=== PATIENT | female | born 1995 | race Two or more races ===

== ENCOUNTER → 2020-03-07 15:01 | Outpatient (BNVA) | payer SELFPAY | DX: Z13.89 Encounter for screening for other disorder (principal) | CPT/HCPCS: 81025 ==

== ENCOUNTER 2020-03-09 12:04 | Outpatient (REF) | payer OTHER, SELFPAY ==
--- NOTE | 2020-03-09 12:34 | US_ITS ---
EXAMINATION: OBSTETRICAL ULTRASOUND, FIRST TRIMESTER HISTORY: 24-year-old with secondary amenorrhea LMP: Unknown COMPARISON: None TECHNIQUE: Real time transabdominal imaging with color and M-mode Doppler. Transvaginal ultrasound was performed using an endovaginal probe for better resolution. FINDINGS: A single, live IUP CRL of 14.4 mm c/w 7.6wks is noted. Heart Rate: 169 beats per minute. Normal yolk sac seen Left ovary is within normal limits. The right ovary was not visualized. GESTATIONAL AGE: 1. GA from LMP: N/A wks 2. GA from AUA: 7.6 wks ESTIMATED DATE OF DELIVERY: 1. BRUNA from LMP: N/A 2. BRUNA from AUA: 10/20/2020 IMPRESSION: 1. A single live IUP 2. CRL corresponds to 7 weeks 6 days, best BRUNA 10/20/2020. 3. Normal-appearing yolk sac Follow up at approximately 12 weeks of gestation for NT evaluation (not scheduled) Thank you very much for this referral.
== END 2020-03-09 12:05 | disposition home or self-care (01) ==
LOC: HO.US 12:04
PROVIDERS: Visit Provider Advanced Practice Midwife
DX: Z34.90 Encounter for supervision of normal pregnancy, unspecified, unspecified trimester (principal)
CPT/HCPCS: 76801; 76817

== ENCOUNTER → 2020-03-28 10:19 | Outpatient (BNVA) | payer OTHER, SELFPAY | PROVIDERS: Visit Provider Advanced Practice Midwife | DX: Z76.89 Persons encountering health services in other specified circumstances (principal) ==

== ENCOUNTER 2020-04-09 15:10 | Outpatient (REF) | payer OTHER, SELFPAY ==
[2020-04-10 02:15] LABS: CT PCR NOT DETECTED (Not Detect.); NG PCR NOT DETECTED (Not Detect.)
== END 2020-04-09 15:11 | disposition home or self-care (01) ==
LOC: HO.LAB 15:10
PROVIDERS: Visit Provider Advanced Practice Midwife
DX: O21.9 Vomiting of pregnancy, unspecified (principal); Z34.90 Encounter for supervision of normal pregnancy, unspecified, unspecified trimester; Z13.31 Encounter for screening for depression
CPT/HCPCS: 87491; 87591; 88142

== ENCOUNTER → 2020-05-07 11:25 | Outpatient (BNVA) | payer OTHER, SELFPAY | PROVIDERS: Visit Provider Advanced Practice Midwife | DX: Z76.89 Persons encountering health services in other specified circumstances (principal) ==

== ENCOUNTER 2020-05-18 10:53 | Outpatient (REF) | payer OTHER, SELFPAY ==
--- NOTE | 2020-05-18 10:57 | US_ITS ---
EXAMINATION: US OBSTETRICAL CLINICAL INFORMATION: 25-year-old at 17.6 weeks of gestation Suspected anomaly COMPARISON: 03/09/2020 TECHNIQUE: Real-time transabdominal ultrasound was performed using C1-5 megahertz transducer. FINDINGS: A single, active, fetus is seen in vertex presentation. The placenta is posterior without previa, and the amniotic fluid volume is wnl. MEASUREMENTS: 1. Biparietal Diameter: 4.0 cm; 18.1 wks 2. Occipital Frontal Diameter: 5.2 cm 3. Head Circumference: 14.7 cm; 18.0 wks 4. Abdominal Circumference: 12.8 cm; 18.3 wks 5. Femur Length: 2.7 cm; 18.3 wks 6. Humerus Length: 2.7 cm; 18.4 wks 7. Tibia Length: 2.7 cm; 19.5 wks 8. Ulna Length: 2.4 cm; 18.5 wks 9. Lateral ventricle: 0.62 cm 10. Cerebellum: 1.74 cm; 18.2 wks 11. Cisterna Magna: 0.43 cm 12. Nuchal Fold: 2.6 mm 13. Heart Rate: 158 beats per minute Rt ovary: normal Lt ovary: normal Cervical length 4.5 cm on T/A. GESTATIONAL AGE: 1. Established GA: 17.6 wks 2. GA from [facility]: 18.2 wks ESTIMATED DATE OF DELIVERY: 1. Established BRUNA: 10/20/2020 2. BRUNA from [facility]: 10/17/2020 ANATOMY: Limited the anatomic survey due to position and early gestational age. The views of four-chamber, RVOT, 3 vessel trachea and bilateral hands were suboptimal. The visualized anatomy includes but not limited to: 1. Cranium: Normal 2. Intracranial anatomy: cavum septum pellucidi, lateral ventricles, choroid plexus, cerebellum, posterior fossa, third and fourth ventricles. 3. face: orbits, lip/palate, profile, nasal bone 4. Heart: aortic and ductal arches, situs.. 5. Diaphragm: Normal 6. Abdominal wall: Normal 7. Cord Insertion: Normal 8. Spine: Cervical, thoracic, lumbar, sacral. 9. Stomach: Normal size and shape 10. Right Kidney: Normal 11. Left Kidney: Normal 12. 3 vessel cord: Normal 13. Upper extremity: Suboptimal views of the hands 14. Lower extremity: Tibia, fibula, bilateral feet. 15. Bladder: Normal 16. Genitalia: Male, patient aware US/US OB /maternal detail IMPRESSION: 1. Single, living, intrauterine with appropriate biometry. 2. Limited the anatomic survey due to position and early gestational age. The views of four-chamber, RVOT, 3 vessel trachea and bilateral hands were suboptimal. No abnormalities were seen in visualized anatomy. DISCUSSION: I reviewed today's ultrasound findings. We discussed the limitations of ultrasound in diagnosing aneuploidy and other congenital abnormalities. I reviewed the differences between screening test and diagnostic test. Amniocentesis was discussed and declined. She was informed that the baseline incidence of congenital abnormalities is approximately 3-5%. Not all these conditions are diagnosable in utero. RECOMMENDATIONS: 1. A follow-up has been scheduled in 3 weeks. Thank you for allowing me to participate in her care. Visiting time 25 minutes. Majority of this visit was spent reviewing and discussing her care.
[2020-05-18 14:15] LABS: MANUAL DIFF FLAG NO
[2020-05-18 14:24] LABS: Basophils Absolute Auto 0.1 X10*3/uL (0.0-0.2); Basophils Percent Auto 0.3 % (0-2); Eosinophils Absolute Auto 0.1 X10*3/uL (0.0-0.4); Eosinophils Percent Auto 0.9 % (0-4); Hematocrit 32.5 % (37-47); Hemoglobin 10.6 g/dl (12.0-16.0); Imm Gran Abs Auto 0.12 X10*3/uL (0.00-0.03); Imm Gran Pct Auto 0.7 % (0.0-0.4); Lymphocytes Absolute Auto 1.7 X10*3/uL (1.2-4.9); Lymphocytes Percent Auto 10.4 % (20-40); Mean Corpuscular HGB Conc 32.6 g/dl (31.0-35.0); Mean Corpuscular Hemoglobin 27.1 pg (27.0-33.0); Mean Corpuscular Volume 83.1 fL (80-98); Mean Platelet Volume 11.6 fL (9.4-12.3); Monocytes Absolute Auto 0.5 X10*3/uL (0.1-1.2); Monocytes Percent Auto 3.2 % (2-11); Neutrophils Absolute Auto 13.5 X10*3/uL (2.0-8.3); Neutrophils Percent Auto 84.5 % (45-73); Platelet Count 337 X10*3/uL (160-400); Red Blood Count 3.91 X10*6/uL (4.20-5.50); Red Cell Distribution Width 14.2 % (11.0-16.0)
[2020-05-18 15:03] LABS: Amphetamine Screen Urine Not Detected (Not Detect); Barbiturates, Urine Not Detected (Not Detect); Benzodiazepines Screen Urine Not Detected (Not Detect); Cannabinoid Screen Urine Not Detected (Not Detect); Cocaine Screen Urine Not Detected (Not Detect); Opiate Screen Urine Not Detected (Not Detect); Phencyclidine Screen Urine Not Detected (Not Detect)
[2020-05-18 15:03] LABS: Syphilis Screen Nonreactive (Nonreactive)
[2020-05-19 09:17] LABS: Rubella IgG Antibody 1.25 Index
[2020-05-21 07:54] LABS: HBsAGNum1 0.19 S/CO (0.00-0.99); Hepatitis B Surface Antigen Negative (Negative); ~HepC Num1 0.05 S/CO (0.00-0.79); ~Hepatitis C Antibody Nonreactive (Nonreactive)
[2020-05-21 08:27] LABS: HIV AB/AG Nonreactive (Nonreactive); HIV Num 1 0.12 S/CO (0.00-0.99)
== END 2020-05-18 10:54 | disposition home or self-care (01) ==
LOC: HO.US 10:53
PROVIDERS: Visit Provider Advanced Practice Midwife
DX: O35.9XX0 Maternal care for (suspected) fetal abnormality and damage, unspecified, not applicable or unspecified (principal); Z3A.18 18 weeks gestation of pregnancy
CPT/HCPCS: 36415; 76811; 80307; 85025; 86762; 86780; 86787; 86803; 86850; 86900; 86901; 87086; 87340; 87389

== ENCOUNTER → 2020-06-14 15:06 | Outpatient (BNVA) | payer OTHER, SELFPAY | PROVIDERS: PCP Internal Medicine; Visit Provider Advanced Practice Midwife | DX: O21.9 Vomiting of pregnancy, unspecified (principal); Z13.31 Encounter for screening for depression | CPT/HCPCS: 81003; 99212 ==

== ENCOUNTER 2020-06-22 09:50 | Outpatient (REF) | payer OTHER, SELFPAY ==
--- NOTE | 2020-06-22 09:55 | US_ITS ---
EXAMINATION: OBSTETRICAL ULTRASOUND, Follow up HISTORY: 25-year-old at 23.1 weeks of gestation Follow-up anatomy COMPARISON: 05/18/2020 TECHNIQUE: Real time transabdominal imaging with color and M-mode Doppler. PRESENTATION: Breech PLACENTA LOCATION: Posterior AMNIOTIC FLUID: Normal MEASUREMENTS: 1. Biparietal Diameter: 5.4 cm; 22.4 wks 2. Head Circumference: 20.7 cm; 22.6 wks 3. Abdominal Circumference: 18.7 cm; 23.4 wks 4. Femur Length: 4.10 cm; 23.3 wks 5. Heart Rate: 142 beats per minute WEIGHT: Estimated weight is 579 grams (1 lbs 4 oz) -- 64 %. Normal views of lateral cerebral ventricle, profile, nose/lips, 4ch view, LVOT, RVOT, bilateral hands. GESTATIONAL AGE: 1. Established GA: 23.1 wks 2. GA from [facility]: 22.6 wks ESTIMATED DATE OF DELIVERY: 1. Established BRUNA: 10/20/2020 2. BRUNA from [facility]: 10/18/2020 US/US OB follow up IMPRESSION: 1. A single fetus with appropriate interval growth. 2. Previously limited views of the anatomy were seen as listed above. No abnormalities were noted in visualized anatomy. 3. This completes the survey. I reviewed the limitations of ultrasound in diagnosing aneuploidy and other congenital abnormalities. Amniocentesis was again reviewed and she declined. She was informed that the baseline instance of congenital abnormalities and defects in the general population is approximately 3-5%. Not all these conditions are diagnosable in utero. RECOMMENDATIONS: 1. f/u PRN Thank you very much for this referral.
== END 2020-06-22 09:51 | disposition home or self-care (01) ==
LOC: HO.US 09:50
PROVIDERS: Visit Provider Advanced Practice Midwife
DX: Z36.2 Encounter for other antenatal screening follow-up (principal); Z3A.23 23 weeks gestation of pregnancy
CPT/HCPCS: 76816

== ENCOUNTER → 2020-07-12 12:50 | Outpatient (BNVA) | payer OTHER, SELFPAY | PROVIDERS: Visit Provider Advanced Practice Midwife | DX: Z76.89 Persons encountering health services in other specified circumstances (principal) | CPT/HCPCS: 99212 ==

== ENCOUNTER 2020-08-07 11:07 | Outpatient (REF) | payer OTHER, SELFPAY ==
[2020-08-07 14:07] LABS: Hematocrit 28.6 % (37-47); Hemoglobin 9.2 g/dl (12.0-16.0); Mean Corpuscular HGB Conc 32.2 g/dl (31.0-35.0); Mean Corpuscular Hemoglobin 26.4 pg (27.0-33.0); Mean Corpuscular Volume 82.2 fL (80-98); Mean Platelet Volume 11.4 fL (9.4-12.3); Platelet Count 306 X10*3/uL (160-400); Red Blood Count 3.48 X10*6/uL (4.20-5.50); Red Cell Distribution Width 14.9 % (11.0-16.0); White Blood Count 13.5 X10*3/uL (4.8-10.8)
[2020-08-07 14:48] LABS: Thyroid Stimulating Hormone 1.05 uIU/mL (0.32-4.0)
[2020-08-07 15:06] LABS: Glucose 1 Hour PP 50gm Dose 120 mg/dL (60-140)
[2020-08-08 07:59] LABS: Syphilis Screen Nonreactive (Nonreactive)
[2020-08-09 05:04] LABS: HIV AB/AG Nonreactive (Nonreactive); HIV Num 1 0.06 S/CO (0.00-0.99)
== END 2020-08-07 11:08 | disposition home or self-care (01) ==
LOC: HO.LAB 11:07
PROVIDERS: Absent Provider Advanced Practice Midwife; Visit Provider Advanced Practice Midwife
DX: O21.9 Vomiting of pregnancy, unspecified (principal); O99.213 Obesity complicating pregnancy, third trimester; Z3A.29 29 weeks gestation of pregnancy; Z20.2 Contact with and (suspected) exposure to infections with a predominantly sexual mode of transmission
CPT/HCPCS: 36415; 81003; 84443; 85027; 86780; 86850; 86900; 86901; 87389; 99212

== ENCOUNTER → 2020-08-21 13:05 | Outpatient (BNVA) | payer OTHER, SELFPAY | PROVIDERS: Visit Provider Advanced Practice Midwife | DX: O26.899 Other specified pregnancy related conditions, unspecified trimester (principal); M25.559 Pain in unspecified hip; Z3A.31 31 weeks gestation of pregnancy | CPT/HCPCS: 81003; 99212 ==

== ENCOUNTER 2020-09-06 04:31 | Emergency (ER) | payer OTHER, SELFPAY ==
--- NOTE | 2020-09-06 | ECG_ITS ---
Test Reason : CHEST PAIN Blood Pressure : / mmHG Vent. Rate : 083 BPM Atrial Rate : 083 BPM P-R Int : 172 ms QRS Dur : 078 ms QT Int : 366 ms P-R-T Axes : 022 029 012 degrees QTc Int : 430 ms Normal sinus rhythm Septal infarct , age undetermined Abnormal ECG No previous ECGs available When compared to the previous EKG of No previous ECGs available Referred By: Gissell Valdovinos Electronically Signed By:JNEN ROPER MD
[2020-09-06 04:43] VITALS: BP 130/69; PULSE 93; RESP 18; TEMP 36.6; O2SAT 100; BMI 40.2
--- NOTE | 2020-09-06 05:13 | ED_ITS ---
HPI - Chest Pain General Chief Complaint: Chest Pain Stated Complaint: Chest pain 33 weeks Time Seen by Provider: 09/06/20 05:12 Source: patient Mode of arrival: ambulatory History of Present Illness HPI narrative: A 25-year-old female 33weeks gestation who presents with left shoulder pain that she describes radiating into the distal aspect of her arm as well as into her left chest. This is not associated with dizziness, shortness of breath, nausea, diaphoresis and is not associated with inspiration or movement. In addition, without associated fever, chills, vomiting, sore throat, cough, recent travel, or exposure to COVID-19 exposure. Patient has had an uncomplicated thus far and denies any vaginal bleeding, discharge, contractions and reports positive movement. Related Data Previous Rx's Medication Instructions Recorded doxylamine succinate 25 mg tablet 25 mg PO BEDTIME PRN #30 tab 03/08/20 pyridoxine (vitamin B6) 25 mg 25 mg PO TID PRN #90 tab 03/08/20 tablet vitamin with calcium 1 tab PO DAILY 30 Days #30 tab 03/21/20 no.72-iron 27 mg-folic acid 1 mg tablet promethazine 12.5 mg tablet 12.5 mg PO TID PRN #90 tab 04/09/20 ferrous sulfate 324 mg (65 mg 324 mg PO TID #90 tab 08/08/20 iron) tablet,delayed release promethazine 25 mg tablet 25 mg PO TID PRN #30 tab 08/21/20 Allergies Allergy/AdvReac Type Severity Reaction Status Date / Time No Known Allergies Allergy Verified 08/29/20 07:30 Review of Systems Review of Systems: Pertinent positives and negatives as stated in HPI 10 point review of systems is otherwise negative. [facility] Past Medical History Source: nursing notes reviewed Medical History Hx of benign neoplasm Family History Family History Mother No problems noted. Father Hx of type 1 diabetes mellitus Brother No problems noted. Brother No problems noted. Sister No problems noted. Maternal Aunt History of breast cancer in female Maternal Grandmother No problems noted. Maternal Grandfather No problems noted. Maternal Grandmother No problems noted. Paternal Grandmother No problems noted. Paternal Grandfather No problems noted. Social History Social History Alcohol intake: never Smoking Status: Never smoker Use of substances other than those prescribed or required for medical reasons: No Advance Directives: No Gender identity: female Physical Exam Vital Signs: Vital Signs: Last Vital Signs Temp 98.1 F 09/06/20 08:07 Pulse 78 09/06/20 08:07 Resp 20 09/06/20 08:07 BP 121/70 09/06/20 08:07 Pulse Ox 100 09/06/20 08:07 Body Mass Index 40.2 VITAL SIGNS: Reviewed. GENERAL: Well developed, well nourished, in no acute distress. HEAD: Normocephalic/atraumatic, EYES: PERRLA, EOMI EARS: Ext canals without abnormality NOSE: Nares patent bilateral OROPHARYNX: no oral lesions noted, posterior pharynx clear NECK: Supple, no adenopathy LUNGS: Normal breath sounds. No adventitious sounds or accessory muscle use. SpO2<100> CARDIOVASCULAR: Regular rate and rhythm without noted murmurs ABDOMEN: Soft, non-tender, non-distended with bowel sounds. MUSCULOSKELETAL: No tenderness, deformities, or effusions noted on gross inspection. EXTREMITIES: No cyanosis, clubbing or edema. SKIN: Inspection of the skin reveals no rashes NEUROLOGIC: Alert and oriented x 4. S Course Course Course Narrative: This is a 25-year-old female who is 33 weeks and presents with history and clinical suggestive of musculoskeletal. On review of all investigations that would prompt further discussion regarding imaging such as chest x-ray or CT scan. Low clinical suspicion for PE. All the findings and the next step were discussed with the patient at bedside and she fully agrees with the current plan to treat with Tylenol, lidocaine patch, as well as a heating pad. 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 MDM - Chest Pain Lab Data Result diagrams: 09/06/20 06:50 09/06/20 06:50 Labs: Lab Results 09/06/20 09/06/20 09/06/20 Range/Units 06:50 06:50 06:50 WBC 14.4 H (4.8-10.8) X10*3/uL RBC 3.91 L (4.20-5.50) X10*6/uL Hgb 10.1 L (12.0-16.0) g/dl Hct 31.7 L (37-47) % MCV 81.1 (80-98) fL MCH 25.8 L (27.0-33.0) pg MCHC 31.9 (31.0-35.0) g/dl RDW 15.2 (11.0-16.0) % Plt Count 288 (160-400) X10*3/uL MPV 11.2 (9.4-12.3) fL Immature Gran % (Auto) 0.9 H (0.0-0.4) % Neut % (Auto) 81.8 H (45-73) % Lymph % (Auto) 11.4 L (20-40) % Mora % (Auto) 3.8 (2-11) % Eos % (Auto) 1.7 (0-4) % Baso % (Auto) 0.4 (0-2) % Lymph # (Auto) 1.7 (1.2-4.9) X10*3/uL Mora # (Auto) 0.6 (0.1-1.2) X10*3/uL Eos # (Auto) 0.2 (0.0-0.4) X10*3/uL Baso # (Auto) 0.1 (0.0-0.2) X10*3/uL Abs Immat Gran (auto) 0.13 H (0.00-0.03) X10*3/uL Absolute Neuts (auto) 11.8 H (2.0-8.3) X10*3/uL Absolute Nucleated RBC 0.000 (0.0-0.012) X10*3/uL Nucleated RBC % (auto) 0.0 (0.0-0.2) /100WBC Sodium 137 (135-145) mmol/L Potassium 3.8 (3.3-5.1) mmol/L Chloride 106 (96-108) mmol/L Carbon Dioxide 23 (22-29) mmol/L Anion Gap 12 (12-20) BUN 5 L (9-16) mg/dL Creatinine 0.67 (0.5-1.4) mg/dL Estim Creat Clear Calc 139.3 Estimated GFR > 60 Random Glucose 80 (60-115) mg/dL Calcium 8.5 (8.4-10.2) mg/dL Total Bilirubin < 0.2 (0.0-1.0) mg/dL AST 9 (5-31) U/L ALT < 6 (0-31) U/L Alkaline Phosphatase 154 H (39-117) U/L Troponin I High Sens 5.4 (<3.5-17.0) ng/L Total Protein 6.5 (6.5-8.0) g/dL Albumin 3.4 L (3.5-5.0) g/dL Urine Color Urine Appearance Urine pH (5.0-8.0) Ur Specific [place] (1.005-1.025) Urine Protein (NEG-TRACE) MG/DL Urine Glucose (UA) (NEG) MG/DL Urine Ketones (NEG) MG/DL Urine Blood (NEG) Urine Nitrite (NEG) Ur Leukocyte Esterase (NEG) 09/06/20 Range/Units 08:05 WBC (4.8-10.8) X10*3/uL RBC (4.20-5.50) X10*6/uL Hgb (12.0-16.0) g/dl Hct (37-47) % MCV (80-98) fL MCH (27.0-33.0) pg MCHC (31.0-35.0) g/dl RDW (11.0-16.0) % Plt Count (160-400) X10*3/uL MPV (9.4-12.3) fL Immature Gran % (Auto) (0.0-0.4) % Neut % (Auto) (45-73) % Lymph % (Auto) (20-40) % Mora % (Auto) (2-11) % Eos % (Auto) (0-4) % Baso % (Auto) (0-2) % Lymph # (Auto) (1.2-4.9) X10*3/uL Mora # (Auto) (0.1-1.2) X10*3/uL Eos # (Auto) (0.0-0.4) X10*3/uL Baso # (Auto) (0.0-0.2) X10*3/uL Abs Immat Gran (auto) (0.00-0.03) X10*3/uL Absolute Neuts (auto) (2.0-8.3) X10*3/uL Absolute Nucleated RBC (0.0-0.012) X10*3/uL Nucleated RBC % (auto) (0.0-0.2) /100WBC Sodium (135-145) mmol/L Potassium (3.3-5.1) mmol/L Chloride (96-108) mmol/L Carbon Dioxide (22-29) mmol/L Anion Gap (12-20) BUN (9-16) mg/dL Creatinine (0.5-1.4) mg/dL Estim Creat Clear Calc Estimated GFR Random Glucose (60-115) mg/dL Calcium (8.4-10.2) mg/dL Total Bilirubin (0.0-1.0) mg/dL AST (5-31) U/L ALT (0-31) U/L Alkaline Phosphatase (39-117) U/L Troponin I High Sens (<3.5-17.0) ng/L Total Protein (6.5-8.0) g/dL Albumin (3.5-5.0) g/dL Urine Color YELLOW Urine Appearance HAZY Urine pH 6.5 (5.0-8.0) Ur Specific [place] >= 1.030 H (1.005-1.025) Urine Protein NEG (NEG-TRACE) MG/DL Urine Glucose (UA) NEG (NEG) MG/DL Urine Ketones 5 (NEG) MG/DL Urine Blood NEG (NEG) Urine Nitrite NEG (NEG) Ur Leukocyte Esterase NEG (NEG) Discharge Plan Discharge Clinical Impression: Musculoskeletal arm pain Qualifiers: Laterality: left Qualified Code(s): M79.602 - Pain in left arm Patient Disposition: Home, Self-Care Instructions: Musculoskeletal Pain (ED) Additional Instructions: Tylenol 1000 mg, orally, every 6 hours as needed for pain control. Do not exceed 4000 mg within 24 hours. Lidocaine patch, these are available in every [facility]/warmer, apply to area of maximal tenderness as directed on the outside packaging. May consider using a heating pad for additional symptom relief. Please follow-up with your assistant men's soccer coach/primary care provider within next 2-3 days for re-evaluation. Do not hesitate to return to the emergency department should you develop any additional symptoms to this such as shortness of breath, fevers, chills. Prescriptions: No Action Unisom (doxylamine) 25 mg tablet 25 mg PO BEDTIME PRN (Reason: sleep) Qty: 30 RF: 3 pyridoxine (vitamin B6) [Vitamin B-6] 25 mg tablet 25 mg PO TID PRN (Reason: nausea and vomiting) Qty: 90 RF: 3 Plus (calcium carb) 27 mg iron- 1 mg tablet 1 tab PO DAILY 30 Days Qty: 30 RF: 11 ferrous sulfate 324 mg (65 mg iron) tablet,delayed release (DR/EC) 324 mg PO TID Qty: 90 RF: 2 promethazine 12.5 mg tablet 12.5 mg PO TID PRN (Reason: nausea and vomiting) Qty: 90 RF: 0 promethazine 25 mg tablet 25 mg PO TID PRN (Reason: nausea and vomiting) Qty: 30 RF: 2 Referrals: Physician,None [Primary Care Provider] - 2 days
[2020-09-06] MEDS: Lidocaine HCl Viscous 2 % 15 ML SOLUTION 10 ML MUCOUS MEM (05:26)
[2020-09-06] MEDS: Magnesium Hydrox/Alum Hydrox 30 ML ORAL.SUSP PO (05:26)
[2020-09-06 06:56] LABS: MANUAL DIFF FLAG NO
[2020-09-06 07:08] LABS: Basophils Absolute Auto 0.1 X10*3/uL (0.0-0.2); Basophils Percent Auto 0.4 % (0-2); Eosinophils Absolute Auto 0.2 X10*3/uL (0.0-0.4); Eosinophils Percent Auto 1.7 % (0-4); Hematocrit 31.7 % (37-47); Hemoglobin 10.1 g/dl (12.0-16.0); Imm Gran Abs Auto 0.13 X10*3/uL (0.00-0.03); Imm Gran Pct Auto 0.9 % (0.0-0.4); Lymphocytes Absolute Auto 1.7 X10*3/uL (1.2-4.9); Lymphocytes Percent Auto 11.4 % (20-40); Mean Corpuscular HGB Conc 31.9 g/dl (31.0-35.0); Mean Corpuscular Hemoglobin 25.8 pg (27.0-33.0); Mean Corpuscular Volume 81.1 fL (80-98); Mean Platelet Volume 11.2 fL (9.4-12.3); Monocytes Absolute Auto 0.6 X10*3/uL (0.1-1.2); Monocytes Percent Auto 3.8 % (2-11); Neutrophils Absolute Auto 11.8 X10*3/uL (2.0-8.3); Neutrophils Percent Auto 81.8 % (45-73); Platelet Count 288 X10*3/uL (160-400); Red Blood Count 3.91 X10*6/uL (4.20-5.50); Red Cell Distribution Width 15.2 % (11.0-16.0); White Blood Count 14.4 X10*3/uL (4.8-10.8)
--- NOTE | 2020-09-06 07:31 | PC.NURSE ---
report taken from destiny grimes pt sitting up in stretcher, sts cp feeling better than when arrived. awaiting lab results. in no apparent distress. wctm.
[2020-09-06 07:32] VITALS: BP 119/67; PULSE 87; RESP 20; TEMP 36.6; O2SAT 100
[2020-09-06 07:38] VITALS: BP 123/85; PULSE 68; RESP 20; TEMP 36.3; O2SAT 97
[2020-09-06 07:46] LABS: Alanine Aminotransferase < 6 U/L (0-31); Albumin Level 3.4 g/dL (3.5-5.0); Alkaline Phosphatase 154 U/L (39-117); Anion Gap 12 (12-20); Aspartate Amino Transferase 9 U/L (5-31); Bilirubin Total < 0.2 mg/dL (0.0-1.0); Blood Urea Nitrogen 5 mg/dL (9-16); Calcium 8.5 mg/dL (8.4-10.2); Carbon Dioxide 23 mmol/L (22-29); Chloride 106 mmol/L (96-108); Creatinine Clr Calc Pharmacy 139.3; Estimated Glomerular Filt Rate > 60; Glucose Random 80 mg/dL (60-115); Potassium 3.8 mmol/L (3.3-5.1); Sodium 137 mmol/L (135-145); Total Protein 6.5 g/dL (6.5-8.0)
[2020-09-06 07:47] LABS: Troponin-I High Sensitivity 5.4 ng/L (<3.5-17.0)
[2020-09-06 08:07] VITALS: BP 121/70; PULSE 78; RESP 20; TEMP 36.7; O2SAT 100
[2020-09-06 08:18] LABS: Glucose Urine UA NEG (NEG); Leukocyte Esterase Urine NEG (NEG); Nitrite Urine NEG (NEG); PH 6.5 (5.0-8.0); Specific Gravity - Urine >= 1.030 (1.005-1.025); Urine Blood NEG (NEG); Urine Ketones 5 MG/DL (NEG); Urine Protein NEG (NEG-TRACE)
[2020-09-06 08:30] LABS: Appearance Urine HAZY; Color Urine YELLOW
[2020-09-06 09:03] VITALS: PULSE 87; RESP 20; TEMP 530.6; TEMP 987.1; O2SAT 100
== END 2020-09-06 09:06 | disposition home or self-care (01) ==
PROVIDERS: Emergency Provider Student in an Organized Health Care Education/Training Program
DX: O26.893 Other specified pregnancy related conditions, third trimester (principal); M25.512 Pain in left shoulder; Z3A.33 33 weeks gestation of pregnancy
CPT/HCPCS: 36415; 80053; 81003; 84484; 85025; 93005; 99283; 99284

== ENCOUNTER → 2020-09-13 14:56 | Outpatient (BNVA) | payer OTHER, SELFPAY | PROVIDERS: Visit Provider Advanced Practice Midwife | DX: O36.8190 Decreased fetal movements, unspecified trimester, not applicable or unspecified (principal); O99.613 Diseases of the digestive system complicating pregnancy, third trimester; K59.00 Constipation, unspecified; Z3A.34 34 weeks gestation of pregnancy | CPT/HCPCS: 59025; 81003; 99212 ==

== ENCOUNTER 2020-09-13 17:12 | Outpatient (REF) | payer OTHER, SELFPAY ==
--- NOTE | ~2020-09-13 | US_ITS ---
EXAMINATION: US OBSTETRICAL (BIOPHYSICAL PROFILE) CLINICAL INFORMATION: Decreased movements COMPARISON: Ultrasound OB 06/22/2020 TECHNIQUE: Ultrasound of the pelvis is performed. Biophysical profile is performed over 30 minutes with assessment of breathing, gross body movement, tone, and qualitative amniotic fluid volume. Each matrix is scored 0 or 2, depending if the metric is present. Maximum total score possible is 8. Examination is not intended to assess for anomalies. FINDINGS: POSITION: Cephalic PLACENTA: Posterior, grade 2 AMNIOTIC FLUID INDEX: 14.4 cm CARDIAC ACTIVITY: 139 beats per minute BIOPHYSICAL PROFILE: Motion: 2 Tone: 2 Breathin Amniotic Fluid: 2 Total score: 6/8 breathing was not visualized. US/US OB biophysical profile IMPRESSION: 1. Single intrauterine gestation in cephalic position with posterior placenta. 2. Total biophysical score is 6/8 (scale 0-8). 3. Amniotic fluid index 14.4 cm. 4. cardiac activity 139 beats per minute. Results were called to Dr. Miller with preliminary results by ultrasound
== END 2020-09-13 17:13 | disposition home or self-care (01) ==
LOC: HO.US 17:12
PROVIDERS: Visit Provider Advanced Practice Midwife
DX: O36.8190 Decreased fetal movements, unspecified trimester, not applicable or unspecified (principal); O99.613 Diseases of the digestive system complicating pregnancy, third trimester; K59.00 Constipation, unspecified; Z3A.00 Weeks of gestation of pregnancy not specified
CPT/HCPCS: 76819

== ENCOUNTER 2020-09-14 15:09 | Outpatient (REF) | payer OTHER, SELFPAY ==
--- NOTE | ~2020-09-14 | US_ITS ---
EXAMINATION: US OBSTETRICAL (BIOPHYSICAL PROFILE) CLINICAL INFORMATION: 25-year-old at 34.6 weeks of gestation Decreased movement COMPARISON: 09/13/2020 TECHNIQUE: Biophysical profile is performed over 30 minutes with assessment of breathing, gross body movement, tone, and qualitative amniotic fluid volume. FINDINGS: POSITION: Cephalic PLACENTA: Posterior without previa AMNIOTIC FLUID INDEX: 14.7 cm CARDIAC ACTIVITY: 150 beats per minute BIOPHYSICAL PROFILE: Motion: 2 Tone: 2 Breathin Amniotic Fluid: 2 The total biophysical score is 8/8 US/US OB biophysical profile IMPRESSION: 1. Single intrauterine gestation in vertex position. 2. Reassuring BPP and SARATH Reassurance given. Patient reports that that she is noticing decreased movement throughout the day. Her NST was reactive. As long as she continues to proceed decreased movement, NST 2 times per week and weekly biophysical profile is recommended. Good movements and was noted today during the examination. Thank you for allowing me to participate in her care. Total time 20 minutes. The time spent was devoted to counseling the patient about the disease and diagnosis, coordinating care including reviewing her records, pertinent lab data and studies, as well as discussing diagnostic evaluation and workup, plan therapeutic interventions and future disposition of care. This includes any additional research needed to obtain further information in formulating the plan of care of this patient. This note was generated with a voice recognition program. Please excuse any errors which may have been overlooked during my review of this note. Sometimes these errors may affect the content or meaning of a given sentence.
== END 2020-09-14 15:10 | disposition home or self-care (01) ==
LOC: HO.US 15:09
PROVIDERS: Visit Provider Obstetrics & Gynecology
DX: O36.8190 Decreased fetal movements, unspecified trimester, not applicable or unspecified (principal)
CPT/HCPCS: 76819

== ENCOUNTER → 2020-09-19 15:01 | Outpatient (BNVA) | payer OTHER, SELFPAY | PROVIDERS: PCP Internal Medicine; Visit Provider Advanced Practice Midwife | DX: O36.8190 Decreased fetal movements, unspecified trimester, not applicable or unspecified (principal); Z3A.35 35 weeks gestation of pregnancy | CPT/HCPCS: 59025; 81003; 99212 ==

== ENCOUNTER 2020-09-27 14:36 | Outpatient (REF) | payer OTHER, SELFPAY ==
[2020-09-28 10:09] LABS: CT PCR NOT DETECTED (Not Detect.); NG PCR NOT DETECTED (Not Detect.)
== END 2020-09-27 14:37 | disposition home or self-care (01) ==
LOC: HO.LAB 14:36
PROVIDERS: PCP Internal Medicine; Visit Provider Advanced Practice Midwife
DX: Z34.93 Encounter for supervision of normal pregnancy, unspecified, third trimester (principal)
CPT/HCPCS: 59025; 81003; 87081; 87147; 87491; 87591; 99212

== ENCOUNTER 2020-09-28 15:11 | Outpatient (REF) | payer OTHER, SELFPAY ==
--- NOTE | ~2020-09-28 | US_ITS ---
EXAMINATION: OBSTETRICAL ULTRASOUND, Follow up HISTORY: 25-year-old at 36.6 weeks of gestation Size date discrepancy Decreased movement COMPARISON: 09/14/2020 TECHNIQUE: Real time transabdominal imaging with color and M-mode Doppler. PRESENTATION: Vertex PLACENTA LOCATION: Posterior without previa AMNIOTIC FLUID: SARATH 13.0 MEASUREMENTS: 1. Biparietal Diameter: 8.5 cm; 34.3 wks 2. Head Circumference: 31.4 cm; 35.1 wks 3. Abdominal Circumference: 34.1 cm; 38.1 wks 4. Femur Length: 7.3 cm; 37.2 wks 5. Heart Rate: 142 beats per minute WEIGHT: EFW: 3160 grams (6 lbs 15 oz) -- 67 %. BIOPHYSICAL PROFILE: Motion: 2 Tone: 2 Breathin Amniotic Fluid: 2 Total score: 8/8 GESTATIONAL AGE: 1. Established GA: 36.6 wks 2. GA from [facility]: 36.2 wks ESTIMATED DATE OF DELIVERY: 1. Established BRUNA: 10/20/2020 2. BRUNA from [facility]: 10/24/2020 US/US OB follow up IMPRESSION: 1. Single active fetus is in vertex presentation 2. Size equals dates 3. Reassuring biophysical profile with normal amniotic fluid volume Thank you very much for this referral. Total time 30 minutes. The time spent was devoted to counseling the patient about the disease and diagnosis, coordinating care including reviewing her records, pertinent lab data and studies, as well as discussing diagnostic evaluation and workup, plan therapeutic interventions and future disposition of care. This includes any additional research needed to obtain further information in formulating the plan of care of this patient. This note was generated with a voice recognition program. Please excuse any errors which may have been overlooked during my review of this note. Sometimes these errors may affect the content or meaning of a given sentence.
== END 2020-09-28 15:12 | disposition home or self-care (01) ==
LOC: HO.HMGCX 15:11
PROVIDERS: Visit Provider Advanced Practice Midwife
DX: O36.8130 Decreased fetal movements, third trimester, not applicable or unspecified (principal); O26.843 Uterine size-date discrepancy, third trimester; Z3A.36 36 weeks gestation of pregnancy
CPT/HCPCS: 76816

== ENCOUNTER → 2020-10-03 13:55 | Outpatient (BNVA) | payer OTHER, SELFPAY | PROVIDERS: PCP Internal Medicine; Visit Provider Advanced Practice Midwife | DX: Z34.93 Encounter for supervision of normal pregnancy, unspecified, third trimester (principal); Z3A.37 37 weeks gestation of pregnancy | CPT/HCPCS: 81003; 99212 ==

== ENCOUNTER → 2020-10-23 12:38 | Outpatient (BNVA) | payer OTHER, SELFPAY | PROVIDERS: PCP Internal Medicine; Visit Provider Advanced Practice Midwife | DX: Z39.1 Encounter for care and examination of lactating mother (principal) | CPT/HCPCS: 99212 ==